=== PATIENT | female | born 1995 | race Caucasian/White ===

== ENCOUNTER → 2017-08-04 | Outpatient (CLI) | payer BC | LOC: FIMAGING 15:48 | PROVIDERS: ATTEND Physician Assistant Medical | DX: Z30.431 Encounter for routine checking of intrauterine contraceptive device (principal) ==

== ENCOUNTER 2018-10-02 10:32 | Emergency (ER) | payer BC, OTHER ==
--- NOTE | 2018-10-02 11:01 | EDPHY ---
General Time Seen by Provider: 10/02/18 11:00 Narrative: CLINICAL IMPRESSION: Nausea, abdominal pain, diarrhea ASSESSMENT/PLAN: Patient is a 23-year-old female with a history of ADD presents to the emergency department with generalized abdominal pain, nausea and 15 episodes of watery diarrhea. Patient is afebrile, not toxic appearing and in no acute distress. Her abdomen was soft with diffuse, nonfocal tenderness to palpation and without evidence of a surgical abdomen. CBC revealed no evidence of leukocytosis. Her vital signs were reviewed and there was no evidence of sepsis or serious bacterial illness. BMP revealed grossly unremarkable. Lipase and hepatic panel also grossly unremarkable. Urinalysis without evidence of infection. Abdominal ultrasound revealed moderate free fluid in the pelvis with partially collapsed 1.8 x 1.5 x 1 cm right corpus luteal cyst, normal blood flow to the ovary; they were unable to visualize the appendix. I discussed findings with the patient and recommended CT for further evaluation, patient refused CT. She specifically understands that we were not able to visualize the appendix to rule out acute appendicitis. History and physical examination is consistent with generalized lower abdominal pain and diarrhea likely secondary to recent ruptured ovarian cyst versus viral gastroenteritis. negative, rules out ectopic. She had no pelvic pain or complaints to suggest PID. On repeat exam and prior to discharge the patient denies any complaints whatsoever, her abdomen was soft with very mild generalized lower abdominal tenderness to palpation, no peritoneal signs or evidence of a surgical abdomen. She will be seen by [facility] tomorrow for repeat abdominal exam, OBGYN referral also provided. Very conservative return precautions discussed. DIFFERENTIAL DX: Abdominal pain in a female including but not limited to ovarian cyst, pelvic inflammatory disease, ovarian torsion, urinary tract infection, and appendicitis. ED COURSE: 1245: On repeat examination the patient is still unable to give a urine sample , she is tender in the generalized lower abdomen without peritoneal signs. 1405: Ultrasound results discussed with Dr. Elmore, patient with a moderate amount of free fluid in the pelvis, 1.8 x 1.5 x 1 cm corpus luteal cyst collapsed. No evidence of torsion. 1413: On repeat examination I discussed ultrasound findings with the patient, I discussed specifically that we were unable to visualize her appendix. Patient reports that she is feeling nearly symptom-free at this time. I discussed CT for further examination of her symptoms, she refuses CT. CHIEF COMPLAINT: Abdominal pain, nausea, diarrhea HPI: Patient is a 23-year-old female with a history of ADD who presents to the emergency department with a sudden onset of generalized abdominal pain, nausea and multiple episodes of diarrhea. Patient reports she went to bed at 10:30 a.m. Feeling okay, had a sudden awakening around 12:00 a.m. With generalized lower abdominal discomfort described as crampy, achy and sharp at times. She has since developed nausea and 15-20 episodes of watery loose stool. Patient denies any sick contacts, there has been no recent travel hand she has not been on any antibiotics. She denies any fevers or vomiting. She denies any chest pain or shortness of breath. She denies any melena or hematochezia. She denies any urinary symptoms to include dysuria, hematuria or frequency. She denies any pelvic pain, vaginal pain, vaginal bleeding or vaginal discharge. PMH: ADD Pertinent Past Surgical History: Denies Family History: Not contributory Social History: Occasional alcohol, occasional marijuana. Denies cigarette smoking REVIEW OF SYSTEMS: All other systems negative Constitutional: No fever, no chills, appetite change. Eyes: No discharge, vision change ENT: No sore throat, congestion, ear pain. Cardiovascular: No chest pain, no palpitations. Respiratory: No cough, no shortness of breath. Gastrointestinal: Nausea, abdominal pain, diarrhea. Genitourinary: No hematuria, dysuria, flank pain. Musculoskeletal: No back pain, joint swelling, joint pain, myalgias. Skin: No rashes, color change. Neurological: No headache, dizziness, weakness. PHYSICAL EXAM: General Appearance: Well-appearing, no acute distress and not toxic-appearing. HENT: Normocephalic, atraumatic. Bilateral external ears are normal. Bilateral tympanic membranes are normal with pearly browne reflex. Nares are clear, mucosa is pink. Oropharynx is clear, uvula is midline. There is no tonsillar enlargement or exudate. The dentition is normal. Eyes: PERRLA, no acute vision change, nystagmus, swelling, discharge, pain or photosensitivity. Conjunctiva pink, no pallor or injection Neck: Supple, nontender, no lymphadenopathy, no midline pain, FROM. Respiratory: There are no retractions, lungs are clear to auscultation. Cardiac: Regular rate and rhythm, no murmurs or gallops. Gastrointestinal: Abdomen is soft, bowel sounds normal, no masses/hernia. Patient has diffuse abdominal tenderness to palpation no rigidity, guarding or focal peritoneal findings. Neurological: Alert and oriented x 3, CN 2-12 grossly intact, normal sensation and strength Skin: Warm, dry, no rashes, no nodules on palpation. Musculoskeletal: Extremities are symmetrical, full range of motion, no tenderness, deformity, swelling, or erythema. Psychiatric: Mood and affect are normal, there is no agitation. MEDICAL DECISION MAKING: Patient was seen independently. Secondary supervising physician at time of evaluation was Dr. Haddad, he did not evaluate this patient. Diagnosis: Nausea, abdominal pain, diarrhea. Summary: See A/P Clinical lab tests: ordered / reviewed. Independent visualization of images, tracing, or specimens: Yes / No. Decision to obtain medical records or history from someone other than the patient: No Review / Summarize previous medical records: Yes Discussed patient with another provider: Yes, Dr. Haddad Patient Progress: Stable, discharge. - Diagnostics Imaging Results: Imaging Impressions Abdomen Ultrasound 10/02/18 12:53 Impression: 1. Appendix not identified. Consider additional CT imaging, if clinically indicated. 2. Moderate free fluid in the pelvis with partially collapsed 1.8 x 1.5 x 1 cm right corpus luteum cyst or follicle. No ovarian torsion. Findings and recommendations discussed with Emergency Department physician placement assistant, Apple Altamirano, at 1404 hours, 10/02/2018. Final report concurs with initial preliminary interpretation. - History Smoking Status: Never smoked - Objective Vital Signs: Initial Vital Signs Temperature (C) 37.2 C 10/02/18 10:36 Heart Rate 93 10/02/18 10:36 Respiratory Rate 18 10/02/18 10:36 Blood Pressure 118/79 10/02/18 10:36 O2 Sat (%) 98 10/02/18 10:36 O2 Delivery Mode Room Air Allergies/Adverse Reactions: No Known Allergies Allergy (Unverified 10/02/18 10:36) Home Medications: Medication Instructions Recorded Adderall 10 MG (*) 10/02/18 Ondansetron Odt [Zofran Odt] 4 mg PO Q8 PRN #10 tab 10/02/18 Laboratory Results: Laboratory Results 10/02/18 11:09 10/02/18 11:09 10/02/18 10/02/18 10/02/18 13:05 11:09 11:09 WBC RBC Hgb Hct MCV MCH MCHC RDW Plt Count MPV Neut % (Auto) Lymph % (Auto) Cannon % (Auto) Eos % (Auto) Baso % (Auto) Nucleat RBC Rel Count Absolute Neuts (auto) Absolute Lymphs (auto) Absolute Monos (auto) Absolute Eos (auto) Absolute Basos (auto) Absolute Nucleated RBC Immature Gran % Immature Gran # RBC/WBC/PLT Morphology Platelet Estimate Sodium 137 mEq/L mEq/L (135-145) Potassium 3.7 mEq/L mEq/L (3.5-5.2) Chloride 106 mEq/L mEq/L (97-110) Carbon Dioxide 21 mEq/l L mEq/l (22-31) Anion Gap 10 mEq/L mEq/L (6-14) BUN 10 mg/dL mg/dL (7-23) Creatinine 0.6 mg/dL mg/dL (0.6-1.0) Estimated GFR > 60 Glucose 95 mg/dL mg/dL (70-100) Calcium 8.9 mg/dL mg/dL (8.5-10.4) Total Bilirubin 0.8 mg/dL mg/dL (0.1-1.4) Conjugated Bilirubin 0.2 mg/dL mg/dL (0.0-0.5) Unconjugated Bilirubin 0.6 mg/dL mg/dL (0.0-1.1) AST 19 IU/L IU/L (14-46) ALT 20 IU/L IU/L (9-52) Alkaline Phosphatase 60 IU/L IU/L (38-126) Total Protein 6.4 g/dL g/dL (6.3-8.2) Albumin 4.2 g/dL g/dL (3.5-5.0) Lipase 104 IU/L IU/L (23-300) Beta HCG, Qual NEGATIVE Urine Color YELLOW Urine Appearance CLEAR Urine pH 6.0 (5.0-7.5) Ur Specific Lando 1.013 (1.002-1.030) Urine Protein NEGATIVE (NEGATIVE) Urine Ketones NEGATIVE (NEGATIVE) Urine Blood NEGATIVE (NEGATIVE) Urine Nitrate NEGATIVE (NEGATIVE) Urine Bilirubin NEGATIVE (NEGATIVE) Urine Urobilinogen NEGATIVE EU EU (0.2-1.0) Ur Leukocyte Esterase NEGATIVE (NEGATIVE) Urine Glucose NEGATIVE (NEGATIVE) 10/02/18 11:09 WBC 8.07 10^3/uL 10^3/uL (3.80-9.50) RBC 4.76 10^6/uL 10^6/uL (4.18-5.33) Hgb 14.6 g/dL g/dL (12.6-16.3) Hct 42.0 % % (38.0-47.0) MCV 88.2 fL fL (81.5-99.8) MCH 30.7 pg pg (27.9-34.1) MCHC 34.8 g/dL g/dL (32.4-36.7) RDW 11.8 % % (11.5-15.2) Plt Count 204 10^3/uL 10^3/uL (150-400) MPV 9.8 fL fL (8.7-11.7) Neut % (Auto) 90.3 % H % (39.3-74.2) Lymph % (Auto) 4.8 % L % (15.0-45.0) Cannon % (Auto) 4.5 % % (4.5-13.0) Eos % (Auto) 0.1 % L % (0.6-7.6) Baso % (Auto) 0.1 % L % (0.3-1.7) Nucleat RBC Rel Count 0.0 % % (0.0-0.2) Absolute Neuts (auto) 7.29 10^3/uL H 10^3/uL (1.70-6.50) Absolute Lymphs (auto) 0.39 10^3/uL L 10^3/uL (1.00-3.00) Absolute Monos (auto) 0.36 10^3/uL 10^3/uL (0.30-0.80) Absolute Eos (auto) 0.01 10^3/uL L 10^3/uL (0.03-0.40) Absolute Basos (auto) 0.01 10^3/uL L 10^3/uL (0.02-0.10) Absolute Nucleated RBC 0.00 10^3/uL 10^3/uL (0-0.01) Immature Gran % 0.2 % % (0.0-1.1) Immature Gran # 0.02 10^3/uL 10^3/uL (0.00-0.10) RBC/WBC/PLT Morphology TNP Platelet Estimate TNP Sodium Potassium Chloride Carbon Dioxide Anion Gap BUN Creatinine Estimated GFR Glucose Calcium Total Bilirubin Conjugated Bilirubin Unconjugated Bilirubin AST ALT Alkaline Phosphatase Total Protein Albumin Lipase Beta HCG, Qual Urine Color Urine Appearance Urine pH Ur Specific Lando Urine Protein Urine Ketones Urine Blood Urine Nitrate Urine Bilirubin Urine Urobilinogen Ur Leukocyte Esterase Urine Glucose Medications Given: Discontinued Medications Hydromorphone HCl (Dilaudid) 0.5 mg IVP EDNOW ONE Stop: 10/02/18 11:20 Last Admin: 10/02/18 14:55 Dose: Not Given Sodium Chloride (Ns) 1,000 mls @ 0 mls/hr IV EDNOW ONE; Wide Open PRN Reason: Protocol Stop: 10/02/18 11:22 Last Admin: 10/02/18 11:23 Dose: 1,000 mls Sodium Chloride (Ns) 1,000 mls @ 0 mls/hr IV EDNOW ONE; Wide Open PRN Reason: Protocol Stop: 10/02/18 11:20 Last Admin: 10/02/18 11:52 Dose: 1,000 mls Sodium Chloride (Ns) 1,000 mls @ 0 mls/hr IV EDNOW ONE; Wide Open PRN Reason: Protocol Stop: 10/02/18 12:54 Last Admin: 10/02/18 14:55 Dose: Not Given Ondansetron HCl (Zofran) 4 mg IVP EDNOW ONE Stop: 10/02/18 11:23 Last Admin: 10/02/18 11:23 Dose: 4 mg Ondansetron HCl (Zofran) 4 mg IVP EDNOW ONE Stop: 10/02/18 11:20 Last Admin: 10/02/18 14:56 Dose: Not Given Departure - Departure Disposition: Home, Routine, Self-Care Clinical Impression: Abdominal pain Qualifiers: Abdominal location: lower abdomen, unspecified Qualified Code(s): R10.30 - Lower abdominal pain, unspecified Condition: Good Instructions: Abdominal Pain (ED) Additional Instructions: DISCHARGE INSTRUCTIONS FROM YOUR PROVIDER Thank you for visiting our emergency department today. Please keep in mind that discharge from the emergency department does not mean that there is nothing wrong - it simply means that we have not identified an emergency condition that requires further evaluation or treatment in the hospital. Please follow-up tomorrow at [facility] for a repeat abdominal exam as you did not wish to proceed with CT. The ultrasound showed a partially collapsed 1.8 x 1.5 x 1 cm right corpus luteum cyst with a moderate amount of free fluid in your pelvis. Your appendix was not identified, which is why I recommended CT for further evaluation. You have been given an OBGYN referral, please schedule an appointment for repeat examination. Rest, push non-diuretic, non-caffeinated fluids, clear liquid diet, then a BRAT diet (bananas, rice, applesauce, toast), then slowly advance diet to normal. Attempt small frequent meals. Zofran as prescribed as needed for any recurrent nausea and/or vomiting. Schedule a follow-up appointment with your primary care physician in the next 1- 2 days for re-evaluation. Bring a copy of your test results with you to that appointment. Return for increased or unmanageable pain, new site or character of pain, flank pain, groin pain, pelvic pain, development of fever, chills, recurrent vomiting , vomiting blood or coffee grounds, diarrhea, constipation, bloody stools, black tarry stools, burning or pain with urination, bloody urine, inability to urinate, decreased urine output or other signs of dehydration, dizziness, weakness, fainting, difficulty breathing or swallowing, chest pain, or for any other new, worsening or worrisome symptoms. People present with illnesses and injuries in different ways, and it is always possible that we have missed something. Again, thank you for choosing our emergency department. We hope that you feel better. Referrals: [facility] [Clinic] - 1 day without fail Patricia Arriaza MD [Medical Doctor] - 2-3 days, call for appt. Prescriptions: Ondansetron Odt [Zofran Odt] 4 mg PO Q8 PRN #10 tab PRN Reason: Nausea/Vomiting, Can'T Take Po
[2018-10-02] MEDS ORDERED: ONDANSETRON 4 MG/2 ML VIAL IVP ONE ×2 (11:19→11:22)
[2018-10-02] MEDS ORDERED: HYDROmorphONE/DILAUDID 2 MG/ML INJ IVP ONE (11:19)
[2018-10-02] MEDS ORDERED: ONDANSETRON 4 MG/2 ML VIAL ONE (11:19)
[2018-10-02] MEDS ORDERED: NS 1,000 ML IV ONE ×3 (11:19→12:53)
[2018-10-02 11:40] LABS: PLATELET COUNT 204 10^3/uL (150-400)
[2018-10-02] MEDS ORDERED: IOPAMIDOL (ISOVUE-300) 100 ML BTL ONE (14:07)
[2018-10-02 14:57] VITALS: BP 109/76
== END 2018-10-02 14:57 | disposition home or self-care (01) ==
DX: R10.30 Lower abdominal pain, unspecified (principal); R11.0 Nausea; R19.7 Diarrhea, unspecified; E86.9 Volume depletion, unspecified
CPT/HCPCS: 96374; J2405; Q9967